=== PATIENT | female | born 1945 | race Caucasian/White ===

== ENCOUNTER 2021-10-13 17:04 | Emergency (ER) | payer MEDICARE ==
[2021-10-13 19:19] LABS: HEMOGLOBIN 11.6 gm/dl (12.3-15.3); RED BLOOD COUNT 3.73 M/UL (4.00-5.10); WHITE BLOOD COUNT 6.1 K/UL (4.5-11.0)
== END 2021-10-14 00:45 | disposition home or self-care (01) ==
LOC: ER1 17:04
PROVIDERS: Physician Assistant
DX: R07.89 Other chest pain (principal); R06.02 Shortness of breath; E78.5 Hyperlipidemia, unspecified; I10 Essential (primary) hypertension; J44.9 Chronic obstructive pulmonary disease, unspecified
CPT/HCPCS: 71045; 80053; 82550; 82553; 84484; 85025; 85379; 93005; 99285; Q9967

== ENCOUNTER 2021-12-01 13:31 | Emergency (ER) | payer MEDICARE ==
[2021-12-01 13:57] LABS: HEMOGLOBIN 11.7 gm/dl (12.3-15.3); RED BLOOD COUNT 3.74 M/UL (4.00-5.10); WHITE BLOOD COUNT 3.3 K/UL (4.5-11.0)
[2021-12-01] MEDS ORDERED: PAXLOVID 150-11 EACH PO (17:24)
[2021-12-01] MEDS ORDERED: BENZONATATE200 MG PO (17:26)
== END 2021-12-01 17:47 | disposition home or self-care (01) ==
LOC: ER1 13:31
DX: U07.1 COVID-19 (principal); E78.5 Hyperlipidemia, unspecified; I10 Essential (primary) hypertension; Z90.49 Acquired absence of other specified parts of digestive tract; Z90.710 Acquired absence of both cervix and uterus; Z88.5 Allergy status to narcotic agent; Z88.8 Allergy status to other drugs, medicaments and biological substances
CPT/HCPCS: 0241U; 71045; 80053; 81001; 82550; 82553; 84484; 85025; 93005; 96374; 99285; J2405